=== PATIENT | male | born 1940 | race Caucasian/White ===

== ENCOUNTER → 2017-01-11 | Outpatient (CLI) | payer OTHER ==
[~2017-01-11] MED LIST: IBUP-103 PO; LISIPOW; TAMS0.4C38 PO
[2017-01-11 19:03] LABS: BASO % 0.4 %; BASO ABS # 0.03 K/uL (0-0.2); COMPLETE YES; EOS % 3.1 %; HEMATOCRIT 44.5 % (42-52); LYMPH ABS # 1.91 K/uL (1.2-3.4); MEAN CELL VOLUME 91.8 fL (80-100); MEAN CORPUSCULAR HEMOGLOBIN 30.3 pg (25-34); MEAN PLATELET VOLUME 9.9 fL (7.4-10.4); MONO % 6.1 %; NEUT % 63.4 %; PLATELET COUNT 188 K/uL (130-400); RED BLOOD COUNT 4.85 M/uL (4.7-6.1); WHITE BLOOD COUNT 7.34 K/uL (4.8-10.8)
[2017-01-11 19:16] LABS: ALT/SGPT 34 U/L (12-78); AST/SGOT 18 U/L (15-37); BLOOD UREA NITROGEN 19 mg/dl (7-18); CALCIUM 8.3 mg/dl (8.5-10.1); CARBON DIOXIDE 27 mmol/L (21-32); CHLORIDE 107 mmol/L (98-107); GLUCOSE 149 mg/dl (70-99); POTASSIUM 3.7 mmol/L (3.5-5.1); SODIUM 140 mmol/L (136-145)
[2017-01-11 19:27] LABS: ALKALINE PHOSPHATASE 59 U/L (45-117); RHEUMATOID FACTOR < 10.0 U/mL (0-15)
[2017-01-11 20:38] LABS: LYME DISEASE AB IGG NEG (NEG); LYME DISEASE AB IGM NEG (NEG)
== END | disposition home or self-care (01) ==
LOC: C.LABSPEC 17:44
PROVIDERS: ATTEND Internal Medicine
DX: R53.83 Other fatigue (principal); M79.1 Myalgia; M25.529 Pain in unspecified elbow

== ENCOUNTER → 2017-04-20 | Outpatient (CLI) | payer OTHER | END | disposition home or self-care (01) | LOC: C.LABSPEC 13:06 | PROVIDERS: ATTEND Internal Medicine | DX: Z12.11 Encounter for screening for malignant neoplasm of colon (principal) ==

== ENCOUNTER 2018-01-03 14:27 | Emergency (ER) | payer OTHER ==
[~2018-01-03] VITALS: Ht 177.8 cm; Wt 108.2 kg
[2018-01-03 14:30] VITALS: TEMP 36.4; Ht 177.8 cm; Wt 108.2 kg
[2018-01-03 14:50] VITALS: O2SAT 96
[2018-01-03 15:27] LABS: BASO % 0.3 %; BASO ABS # 0.02 K/uL (0-0.2); EOS % 0.8 %; EOS ABS # 0.06 K/uL (0-0.5); HEMATOCRIT 43.4 % (42-52); HEMOGLOBIN 15.1 g/dL (14.0-18.0); IG# 0.05 K/uL (0.00-0.02); LYMPH % 19.4 %; LYMPH ABS # 1.45 K/uL (1.2-3.4); MEAN CELL VOLUME 87.7 fL (80-100); MEAN CORPUSCULAR HEMOGLOBIN 30.5 pg (25-34); MEAN CORPUSCULAR HGB CONC 34.8 g/dl (32-36); MEAN PLATELET VOLUME 9.1 fL (7.4-10.4); MONO % 8.2 %; MONO ABS # 0.61 K/uL (0.11-0.59); NEUT % 70.6 %; NEUT ABS # 5.27 K/uL (1.4-6.5); PLATELET COUNT 159 K/uL (130-400); RED CELL DISTRIBUTION WIDTH SD 45.1 fL (36.4-46.3); WHITE BLOOD COUNT 7.46 K/uL (4.8-10.8)
[2018-01-03] MEDS ORDERED: LISI-461 PO (15:46)
[2018-01-03 15:49] LABS: BLOOD UREA NITROGEN 21 mg/dl (7-18); CALCIUM 8.8 mg/dl (8.5-10.1); CARBON DIOXIDE 26 mmol/L (21-32); CREATININE 1.57 mg/dl (0.60-1.40); GLUCOSE 108 mg/dl (70-99); POTASSIUM 3.6 mmol/L (3.5-5.1); SODIUM 137 mmol/L (136-145)
--- NOTE | 2018-01-03 15:55 | DIAGNOSTIC IMAGING REPORT ---
CHEST ONE VIEW PORTABLE HISTORY: Atypical CHEST PAIN COMPARISON: Chest 05/11/2016. FINDINGS: The lungs are clear. Cardiac silhouette is normal in size. No pleural effusions. No pneumothorax. IMPRESSION: No acute process. Electronically signed by: Eliseo Kinsey M.D. 01/03/2018 3:54 PM Dictated Date/Time: 01/03/2018 3:52 PM
[2018-01-03 16:34] VITALS: BP 143/80; PULSE 60; O2SAT 97
--- NOTE | 2018-01-03 17:06 | DIAGNOSTIC IMAGING REPORT ---
CT SCAN OF THE ABDOMEN AND PELVIS WITHOUT IV CONTRAST CLINICAL HISTORY: Right flank pain. COMPARISON STUDY: Abdominal CT dated 02/28/2013. TECHNIQUE: CT scan of the abdomen and pelvis is performed from the lung bases to the proximal femora. Images are reviewed in the axial, sagittal, and coronal planes. IV contrast was not administered for this examination as per the referring clinician. A dose lowering technique was utilized adhering to the principles of ALARA. CT DOSE: 1126.68 mGycm FINDINGS: Lung bases: The heart is normal in size and without pericardial effusion. A 3 mm left lower lobe pulmonary nodules seen on images #34 and #53 are unchanged from 2013 and of doubtful significance The lung bases are otherwise clear noting dependent atelectasis. Liver: The unenhanced liver is normal in size, contour, and attenuation. There is no intrahepatic biliary ductal dilatation. Scattered hepatic cysts measure up to 2.1 cm. Gallbladder: Unremarkable. Spleen: Normal in size and attenuation. Pancreas: Unremarkable. Adrenal glands: Unremarkable. Kidneys: The unenhanced kidneys demonstrate cortical atrophy and are without hydronephrosis. There are no renal calculi identified. Cortical and parapelvic cysts on the left measure up to 3.3 cm. Abdominal vasculature: The abdominal aorta is normal in course and caliber noting mild to moderate atherosclerotic calcification. Bowel: There are scattered colonic diverticula without CT evidence of acute diverticulitis. No bowel obstruction is seen. The appendix is well-visualized and normal. Peritoneum: There is no intraperitoneal free air or abdominal ascites. There is a small fat-containing umbilical hernia. Lymphadenopathy: None. Pelvic viscera: The bladder, prostate, and seminal vesicles are normal as visualized. Skeletal structures: The skeletal structures are osteopenic. There is moderate to advanced lumbosacral spondylosis. Arthritic change is also seen in the hips. No lytic or blastic lesions are seen. IMPRESSION: 1. There are no acute infectious or inflammatory findings in the abdomen or pelvis. 2. Additional findings as above. Electronically signed by: Eliezer Fair M.D. 01/03/2018 5:04 PM Dictated Date/Time: 01/03/2018 4:58 PM
[2018-01-03] MEDS ORDERED: ONDA4TAB10 SL (17:31)
--- NOTE | 2018-01-03 17:36 | EMERGENCY ROOM VISIT NOTE ---
History Report prepared by Uvaldo: Ventura Yousif Under the Supervision of: Dr. Eric Gomez M.D. First contact with patient: 14:33 Chief Complaint: NAUSEA Stated Complaint: NAUSEA, DIZZINESS History of Present Illness The patient is a 77 year old male who presents to the Emergency Room with complaints of intermittent dizziness beginning yesterday. He also complains of nausea with his dizziness. His symptoms began yesterday while fishing. The patient states that he bent over then stood up, and began feeling his symptoms. He describes his dizziness as "it felt like I was going to pass out". He states that he has had right flank pain recently as well. The patient denies chest pain, SOB, abdominal pain, vomiting, or urinary symptoms. He has a history of kidney stone. He is followed by Dr. Lord of [facility]. Source of History: patient Onset: Yesterday Quality: other (dizziness) Timing: intermittent Associated Symptoms: + nausea, No chest pain, No SOB, No vomiting, No abdominal pain, No urinary symptoms Note: Positive: right flank pain. Review of Systems See HPI for pertinent positives and negatives. A total of ten systems were reviewed and were otherwise negative. 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 Family History No pertinent family history Social History Smoking Status: Never Smoker Alcohol Use: occasionally Marital Status: Housing Status: lives with significant other Occupation Status: retired Current/Historical Medications Scheduled Lisinopril (Lisinopril), 10 MG PO QAM Ondasetron Odt (Zofran Odt), 4 MG SL TID Tamsulosin Hcl (Flomax), 0.4 MG PO QPM Scheduled PRN Ibuprofen Tab (Advil), 400 MG PO DIRECTED PRN for Pain or Fever Allergies Coded Allergies: Oxycodone (Verified Allergy, Severe, "SEVERE" GI UPSET, 01/03/18) Sulfa Drugs (Verified Allergy, Unknown, HAPPENED A CHILD, 01/03/18) Physical Exam Vital Signs Date Time Temp Pulse Resp B/P (MAP) Pulse Ox O2 Delivery O2 Flow Rate FiO2 01/03/18 16:34 60 18 143/80 97 Room Air 01/03/18 15:31 138/80 01/03/18 15:27 63 97 01/03/18 15:20 60 01/03/18 15:19 121/77 01/03/18 14:50 96 Room Air 01/03/18 14:49 96 Room Air 01/03/18 14:30 36.4 65 18 151/81 96 Room Air Physical Exam Physical Exam GENERAL: He is oriented to person, place, and time. He appears well-developed and well-nourished. He does not appear distressed. ____ HENT: Exam performed. Head: Normocephalic and atraumatic. Right Ear: External ear normal. No mastoid tenderness. Left Ear: External ear normal. No mastoid tenderness. Mouth/Throat: The oropharynx is clear and moist. No trismus in the jaw. No dental abscesses or uvula swelling. No oropharyngeal exudate or tonsillar abscesses. ____ EYES: Conjunctivae and EOM are normal. Pupils are equal, round, and reactive to light. Right eye exhibits no discharge. Left eye exhibits no discharge. No scleral icterus. ____ NECK: Normal range of motion. Neck supple. No JVD present. No spinous process tenderness present. No carotid bruit present. No rigidity. No tracheal deviation and normal range of motion present. No Brudzinski's sign and no Kernig 's sign noted. ____ CV: Normal rate, regular rhythm, normal heart sounds and intact distal pulses. There is no peripheral edema. Palpable radial pulses bue. ____ PULM/CHEST: Effort normal and breath sounds normal. No respiratory distress. No stridor. He has no wheezes. He has no rales. Chest Wall: He exhibits no tenderness. ____ ABD: The abdomen is soft. Bowel sounds are normal. He has no distension. No mass is present. There is no tenderness. There is no rebound, no guarding, no Rosales's sign and no tenderness at McBurney's point. Rovsig negative MUSC/SKEL: Normal range of motion. There is no peripheral edema, or deformity. Right CVA tenderness. LYMPH: No cervical adenopathy. ____ NEURO: He is alert and oriented to person, place, and time. H has normal strength. No cranial nerve deficit or sensory deficit. Coordination and gait normal. GCS eye subscore is 4. GCS verbal subscore is 5. GCS motor subscore is 6. Cerebellar tests wnl. ____ SKIN: Skin is warm and dry. He is not diaphoretic. ____ PSYCH: He has a normal mood and affect. His behavior is normal. Judgment and thought content normal. ____ Medical Decision & Procedures ER Provider Diagnostic Interpretation: Radiology results as stated below per my review and radiologist interpretation: CHEST ONE VIEW PORTABLE FINDINGS: The lungs are clear. Cardiac silhouette is normal in size. No pleural effusions. No pneumothorax. IMPRESSION: No acute process. Electronically signed by: Eliseo Kinsey M.D. 01/03/2018 3:[address] SCAN OF THE ABDOMEN AND PELVIS WITHOUT IV CONTRAST FINDINGS: Lung bases: The heart is normal in size and without pericardial effusion. A 3 mm left lower lobe pulmonary nodules seen on images #34 and #53 are unchanged from 2013 and of doubtful significance The lung bases are otherwise clear noting dependent atelectasis. Liver: The unenhanced liver is normal in size, contour, and attenuation. There is no intrahepatic biliary ductal dilatation. Scattered hepatic cysts measure up to 2.1 cm. Gallbladder: Unremarkable. Spleen: Normal in size and attenuation. Pancreas: Unremarkable. Adrenal glands: Unremarkable. Kidneys: The unenhanced kidneys demonstrate cortical atrophy and are without hydronephrosis. There are no renal calculi identified. Cortical and parapelvic cysts on the left measure up to 3.3 cm. Abdominal vasculature: The abdominal aorta is normal in course and caliber noting mild to moderate atherosclerotic calcification. Bowel: There are scattered colonic diverticula without CT evidence of acute diverticulitis. No bowel obstruction is seen. The appendix is well-visualized and normal. Peritoneum: There is no intraperitoneal free air or abdominal ascites. There is a small fat-containing umbilical hernia. Lymphadenopathy: None. Pelvic viscera: The bladder, prostate, and seminal vesicles are normal as visualized. Skeletal structures: The skeletal structures are osteopenic. There is moderate to advanced lumbosacral spondylosis. Arthritic change is also seen in the hips. No lytic or blastic lesions are seen. IMPRESSION: 1. There are no acute infectious or inflammatory findings in the abdomen or pelvis. 2. Additional findings as above. Electronically signed by: Eliezer Fair M.D. 01/03/2018 5:04 PM Laboratory Results 01/03/18 15:10 Red Blood Count 4.95, Mean Corpuscular Volume 87.7, Mean Corpuscular Hemoglobin 30.5, Mean Corpuscular Hemoglobin Concent 34.8, Mean Platelet Volume 9.1, Neutrophils (%) (Auto) 70.6, Lymphocytes (%) (Auto) 19.4, Monocytes (%) (Auto) 8.2, Eosinophils (%) (Auto) 0.8, Basophils (%) (Auto) 0.3, Neutrophils # (Auto) 5.27, Lymphocytes # (Auto) 1.45, Monocytes # (Auto) 0.61, Eosinophils # (Auto) 0.06, Basophils # (Auto) 0.02 01/03/18 15:10 Test 01/03/18 15:10 01/03/18 15:30 White Blood Count 7.46 K/uL (4.8-10.8) Red Blood Count 4.95 M/uL (4.7-6.1) Hemoglobin 15.1 g/dL (14.0-18.0) Hematocrit 43.4 % (42-52) Mean Corpuscular Volume 87.7 fL (80-100) Mean Corpuscular Hemoglobin 30.5 pg (25-34) Mean Corpuscular Hemoglobin Concent 34.8 g/dl (32-36) Platelet Count 159 K/uL (130-400) Mean Platelet Volume 9.1 fL (7.4-10.4) Neutrophils (%) (Auto) 70.6 % Lymphocytes (%) (Auto) 19.4 % Monocytes (%) (Auto) 8.2 % Eosinophils (%) (Auto) 0.8 % Basophils (%) (Auto) 0.3 % Neutrophils # (Auto) 5.27 K/uL (1.4-6.5) Lymphocytes # (Auto) 1.45 K/uL (1.2-3.4) Monocytes # (Auto) 0.61 K/uL (0.11-0.59) Eosinophils # (Auto) 0.06 K/uL (0-0.5) Basophils # (Auto) 0.02 K/uL (0-0.2) RDW Standard Deviation 45.1 fL (36.4-46.3) RDW Coefficient of Variation 14.0 % (11.5-14.5) Immature Granulocyte % (Auto) 0.7 % Immature Granulocyte # (Auto) 0.05 K/uL (0.00-0.02) Anion Gap 7.0 mmol/L (3-11) Est Creatinine Clear Calc Drug Dose 47.8 ml/min Estimated GFR () 48.2 Estimated GFR (Non- 41.6 BUN/Creatinine Ratio 13.4 (10-20) Calcium Level 8.8 mg/dl (8.5-10.1) Troponin I < 0.015 ng/ml (0-0.045) Urine Color YELLOW Urine Appearance CLEAR (CLEAR) Urine pH 5.0 (4.5-7.5) Urine Specific [place] 1.011 (1.000-1.030) Urine Protein NEG (NEG) Urine Glucose (UA) NEG (NEG) Urine Ketones NEG (NEG) Urine Occult Blood NEG (NEG) Urine Nitrite NEG (NEG) Urine Bilirubin NEG (NEG) Urine Urobilinogen NEG (NEG) Urine Leukocyte Esterase NEG (NEG) Laboratory results reviewed by me ECG Per My Interpretation Indication: other (dizziness) Rate (beats per minute): 64 Rhythm: sinus rhythm Findings: 1st degree AV block, T-wave inversion (mild in AVL), other (ND interval of 218. QRS and QTC intervals wtihin normal limits. No ST elevations or depressions.) Comparison ECG Date: April 2016 Change: no significant change ED Course 1434: The patient was evaluated in room C6. A complete history and physical exam was performed. Patient declined analgesia or antiemetics at this time. 1730: Patient's vitals are stable. Labs within normal limits with exception of creatinine which is at baseline. CT imaging within normal limits. Patient reports feeling better, and no longer feeling near syncopal or nauseous. Discussed the patient's case with Dr. Lord. He agrees the patient will be safe for discharge. He will follow up with the patient tomorrow. Medical Decision Patient's vitals are stable. Labs within normal limits with exception of creatinine which is at baseline. CT imaging within normal limits. Patient reports feeling better, and no longer feeling near syncopal or nauseous. Discussed the patient's case with Dr. Lord. He agrees the patient will be safe for discharge. He will follow up with the patient tomorrow. Medication Reconcilliation Current Medication List: was personally reviewed by me Blood Pressure Screening Patient's blood pressure: Normal blood pressure Blood pressure disposition: Did not require urgent referral Consults Time Called: 1715 Consulting Physician: Dr. Lord - [facility] Returned Call: [phone] Discussed the patient's case with Dr. Lord. He will follow up with the patient tomorrow. Impression Primary Impression: Near syncope Additional Impression: Nausea Scribe Attestation The scribe's documentation has been prepared under my direction and personally reviewed by me in its entirety. I confirm that the note above accurately reflects all work, treatment, procedures, and medical decision making performed by me. The chart was completed utilizing [employer] Speech voice recognition software. Grammatical errors, random word insertions, pronoun errors, and incomplete sentences are an occasional consequence of this system due to software limitations, ambient noise, and hardware issues. Any formal questions or concerns about the content, text, or information contained within the body of this dictation should be directly addressed to the physician for clarification. Departure Information Dispostion Home / Self-Care Prescriptions Ondasetron Odt (ZOFRAN ODT) 4 Mg Tab 4 MG SL TID for Nausea, #30 TAB Prov: Eric Gomez M.D. 01/03/18 Referrals Steven Butler M.D. (PCP) Forms HOME CARE DOCUMENTATION FORM, IMPORTANT VISIT INFORMATION Patient Instructions ED Near Syncope Vasovagal, My [facility] Health Problem Qualifiers
== END 2018-01-03 18:09 | disposition home or self-care (01) ==
LOC: C.EDB 14:28 → C.EDC 18:09
DX: R55 Syncope and collapse (principal); R11.0 Nausea; N40.0 Benign prostatic hyperplasia without lower urinary tract symptoms; Z79.899 Other long term (current) drug therapy; Z88.2 Allergy status to sulfonamides; Z88.5 Allergy status to narcotic agent; I44.0 Atrioventricular block, first degree

== ENCOUNTER → 2018-04-04 | Outpatient (CLI) | payer OTHER ==
[~2018-04-04] MED LIST changes: +LISI-461 PO; -LISIPOW; +ONDA4TAB10 SL
== END | disposition home or self-care (01) ==
LOC: C.LABSPEC 17:17
PROVIDERS: ATTEND Urology
DX: R35.1 Nocturia (principal)